=== PATIENT | female | born 1960 | race Caucasian/White ===

== ENCOUNTER 2018-02-28 01:53 | Observation (INO) | payer BC ==
[~2018-02-28] VITALS: Ht 157.5 cm; Wt 81.2 kg
[2018-02-28] MEDS ORDERED: dexameTHASONE 20 MG/5 ML VIAL (J1100) IV ONE (03:15)
[2018-02-28 03:16] LABS: BASO # 0.1 10^3/uL (0.0-0.2); BASO % 0.6 % (0.0-1.0); EOS % 0.1 % (0.0-3.0); HEMATOCRIT 34.2 % (36.0-47.0); HEMOGLOBIN 11.6 g/dl (12.0-15.5); LYMPH # 0.7 10^3/uL (1.5-4.5); LYMPH % 4.8 % (24.0-44.0); MEAN CORPUSCULAR HEMOGLOBIN 28.3 pg (27.0-33.0); MEAN CORPUSCULAR HGB CONC 33.9 g/dl (32.0-36.5); MEAN CORPUSCULAR VOLUME 83.4 fl (80.0-96.0); MONO # 0.8 10^3/uL (0.0-0.8); MONO % 5.6 % (0.0-5.0); NEUTROPHILS % 88.4 % (36.0-66.0); PLATELET COUNT, AUTOMATED 176 10^3/uL (150-450); WHITE BLOOD COUNT 14.7 10^3/uL (4.0-10.0)
[2018-02-28 03:29] LABS: BLOOD UREA NITROGEN 12 MG/DL (7-18); CALCIUM LEVEL 7.9 MG/DL (8.5-10.1); CARBON DIOXIDE LEVEL 23 MEQ/L (21-32); CHLORIDE LEVEL 107 MEQ/L (98-107); CPK CREATINE PHOSPHOKINASE 124 U/L (26-192); CREATININE FOR GFR 0.85 MG/DL (0.55-1.30); GLOMERULAR FILTRATION RATE > 60.0 (>51); GLUCOSE, FASTING 137 MG/DL (70-100); MB/CK RELATIVE INDEX 1.05 (< OR =4); NT-PRO BNP 1943 PG/ML (<125); POTASSIUM SERUM 3.4 MEQ/L (3.5-5.1); SODIUM LEVEL 139 MEQ/L (136-145); TROPONIN I < 0.02 NG/ML (< 0.10)
[2018-02-28] MEDS: IPRATROPIUM 0.5MG/ALBUTEROL 2.5MG INH SOL UD 3ML (DUONEB)(J7620) NEB SCH ×6 (03:29→19:45)
[2018-02-28 03:37] LABS: ABG BASE EXCESS 0.9 (-2.0-2.0); ABG HCO3 24.9 MEQ/L (22.0-26.0); ABG O2 SATURATION 95.7 % (95.0-99.0); ABG PARTIAL PRESSURE CO2 37.4 mmHg (35.0-45.0); ABG PARTIAL PRESSURE O2 76.4 mmHg (75.0-100.0); ABG STANDARD HCO3 25.3 MEQ/L (22.0-26.0); ABG pH (ARTERIAL) 7.441 UNITS (7.350-7.450)
--- NOTE | 2018-02-28 04:55 | ECGEPIP ---
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
[2018-02-28 05:00] VITALS: BP 102/50
[2018-02-28] MEDS ORDERED: FUROSEMIDE 100 MG/10 ML VIAL (J1940) IV ONE (05:00)
[2018-02-28] MEDS ORDERED: NITROGLYCERIN 2% OINT 1 GM *U/D* PKT TOP ONE (05:00)
[2018-02-28] MEDS ORDERED: HYDR25TAB PO (05:11)
[2018-02-28] MEDS ORDERED: FAMO1TAB11 PO (05:11)
[2018-02-28] MEDS ORDERED: MELO15TA28 PO (05:11)
[2018-02-28] MEDS ORDERED: AMLO5TAB6 PO (05:11)
[2018-02-28] MEDS ORDERED: VENTAER INH (05:11)
[2018-02-28] MEDS ORDERED: SUMA100T2 PO (05:11)
[2018-02-28] MEDS ORDERED: GABA-843 PO (05:11)
[2018-02-28] MEDS ORDERED: OMEP20CA3 PO (05:11)
[2018-02-28] MEDS ORDERED: FLUO40CA PO (05:11)
[2018-02-28] MEDS ORDERED: TRAZ10TA PO (05:11)
[2018-02-28] MEDS ORDERED: ONDANSETRON 4MG/2ML VIAL (J2405) IV PRN (05:30)
[2018-02-28] MEDS ORDERED: IPRATROPIUM 0.5MG/ALBUTEROL 2.5MG INH SOL UD 3ML (DUONEB)(J7620) NEB PRN (05:30)
[2018-02-28] MEDS ORDERED: BISACODYL 10 MG SUPP PR PRN (05:30)
[2018-02-28] MEDS ORDERED: BISACODYL 5 MG TAB PO PRN (05:30)
[2018-02-28] MEDS ORDERED: ALKACAP4 PO (05:44)
[2018-02-28] MEDS ORDERED: POTASSIUM CHLORIDE 10 MEQ SR TABLET PO ONE (05:45)
[2018-02-28] MEDS ORDERED: MAGNESIUM OXIDE 400 MG TAB (MAG-OX) PO ONE (05:45)
--- NOTE | 2018-02-28 05:50 | HPEPDOC ---
[facility] Medical History & Physical Date of Admission Feb 28, 2018 Attending Physician: RITA BOLAND MD History and Physical CHIEF COMPLAINT: [Dyspnea] HISTORY OF PRESENT ILLNESS: [57-year-old female was in a few past medical history of hypertension, who takes water pill, but denies of any heart failure heart disease, GERD, neuropathy, depression, migraine, and smokes one pack a day present complaining shortness of breath. Patient is visiting from [place]. She is visiting her sister for the holiday season. Patient came in today [place] one day prior to . Subsequently patient has been eating, with family including eating hussein in the morning and also has soup at a restaurant. Patient states that she normally does not consume much salt. Patient also had chest discomfort with shortness of breath. Starting 2 days ago she had shortness of breath and progressively worsened. She denies any fever, chills, abdominal pain, diarrhea or dysuria. She did have some intermittent cough without sputum production. She does smoke 1 pack a day but restarted 2 years ago. She is not oxygen or steroid dependent. She is unable to lay flat without shortness of breath. Denies of any lower extremity swelling. Patient was evaluated in the emergency room initially pulse ox showed hypoxemia on room air but after receiving therapy in the emergency room patients ABG was found to be normal. Patient had a checks x-ray showed cardiomegaly with cephalization. Patient received IV Lasix with good urine output. Patient is feeling much better. Patient is being admitted for further evaluation and treatment for CHF exacerbation. Review system: 12 point review systems negative other than those described in HPI Past medical history: Hypertension, takes water pill does not know she has congestive heart failure, denies of heart disease, GERD, neuropathy, depression, migraine which takes trazodone and a smoker Surgical history: Hand surgery, shoulder surgery Social history: Patient denies of IV drug abuse but occasionally drinks alcohol last consumption of alcohol was during the but denies of any abuse, smokes 1 pack a day and restarted smoking 2 years ago. Intermittently smoking on and off. Family medical history: Noncontributory ALLERGIES: Please see below. HOME MEDICATIONS: Please see below. PHYSICAL EXAMINATION: VITAL SIGNS: Please see below GENERAL APPEARANCE: Shortness of breath, improved with oxygen therapy HEENT: Normocephalic, PERRLA, Mucous moist, CARDIOVASCULAR: S1,S2, pulse present, regularly, regular LUNGS: Equal air entry b/l, no wheezes but bilateral diffuse crackle ABDOMEN: Soft, BS present, no tenderness, no guarding GENITOURINARY: No Meneses EXTREMITIES: B/L no edema, capillary refill present SKIN: Warm, No fever NEUROLOGICAL: Cranial nerves grossly intact PSYCHIATRIC: Normal mood and affect for current situation, sister and family member at the bedside LABORATORY DATA: See below. IMAGING: [CXR: Cardiomegaly, cephalization but no obvious consolidation. Please follow up with official reading by radiology in a.m. EKG: HR 79, sinus, no ST elevation MICROBIOLOGY: Please see below. Assessment and plan: 57-year-old female was in a few past medical history of hypertension, who takes water pill, but denies of any heart failure heart disease, GERD, neuropathy, depression, migraine, and smokes one pack a day present complaining shortness of breath. Dyspnea from Pulmonary edema and CHF exacerbation (ABG without acidosis or hypoxemia but patient symptomatic dyspnea) Respiratory treatment, oxygen Telemetry, serial cardiac enzyme, echocardiogram I&O monitoring, daily weight IV Lasix with parameters Thyroid function Leukocytosis, most likely reactive No fever Continue clinically monitor Hypokalemia Replace and monitor, magnesium level GERD, Protonix by mouth Hypertension, utilize Lasix as mentioned above Patients sister to bring his medication list from home today DVT prophylaxis with heparin subcutaneous Vital Signs Vital Signs Date Time Temp Pulse Resp B/P (MAP) Pulse Ox O2 Delivery O2 Flow Rate FiO2 02/28/18 05:30 20 149/61 (90) 02/28/18 05:23 82 97 02/28/18 02:15 Nasal Cannula 2.0 02/28/18 01:54 98.1 Laboratory Data Labs 24H Laboratory Tests 2 02/28/18 02:28: Immature Granulocyte % (Auto) 0.5, White Blood Count 14.7H, Red Blood Count 4.10, Hemoglobin 11.6L, Hematocrit 34.2L, Mean Corpuscular Volume 83.4, Mean Corpuscular Hemoglobin 28.3, Mean Corpuscular Hemoglobin Concent 33.9, Red Cell Distribution Width 13.2, Platelet Count 176, Neutrophils (%) (Auto) 88.4H, Lymphocytes (%) (Auto) 4.8L, Monocytes (%) (Auto) 5.6H, Eosinophils (%) (Auto) 0.1, Basophils (%) (Auto) 0.6, Neutrophils # (Auto) 13.0H, Lymphocytes # (Auto) 0.7L, Monocytes # (Auto) 0.8, Eosinophils # (Auto) 0.0, Basophils # (Auto) 0.1, Nucleated Red Blood Cells % (auto) 0.0, Anion Gap 9, Glomerular Filtration Rate > 60.0, Blood Urea Nitrogen 12, Creatinine 0.85, Sodium Level 139, Potassium Level 3.4L, Chloride Level 107, Carbon Dioxide Level 23, Calcium Level 7.9L, Total Creatine Kinase 124, Creatine Kinase MB 1.0, Creatine Kinase MB Relative Index 1.05, Troponin I < 0.02, TE-Wox-P-Type Natriuretic Peptide 1943H 02/28/18 03:08: Blood Gas Bicarbonate Standard 25.3, Arterial Blood pH 7.441, Arterial Blood Partial Pressure CO2 37.4, Arterial Blood Partial Pressure O2 76.4, Arterial Blood Total CO2 26.0, Arterial Blood HCO3 24.9, Arterial Blood Base Excess 0.9, Arterial Blood Oxygen Saturation 95.7 CBC/BMP Laboratory Tests 02/28/18 02:28 Red Blood Count 4.10, Mean Corpuscular Volume 83.4, Mean Corpuscular Hemoglobin 28.3, Mean Corpuscular Hemoglobin Concent 33.9, Red Cell Distribution Width 13.2, Neutrophils (%) (Auto) 88.4 H, Lymphocytes (%) (Auto) 4.8 L, Monocytes (%) (Auto) 5.6 H, Eosinophils (%) (Auto) 0.1, Basophils (%) (Auto) 0.6, Neutrophils # (Auto) 13.0 H, Lymphocytes # (Auto) 0.7 L, Monocytes # (Auto) 0.8, Eosinophils # (Auto) 0.0, Basophils # (Auto) 0.1, Calcium Level 7.9 L, Total Creatine Kinase 124 Home Medications Scheduled Amlodipine Besylate (Amlodipine Besylate) 5 Mg Tab, 5 MG PO DAILY Famotidine (Famotidine) 20 Mg Tab, 20 MG PO QPM Fluoxetine Hcl (Fluoxetine HCl) 40 Mg Cap, 40 MG PO BID Gabapentin (Gabapentin) 300 Mg Cap, 900 MG PO TID Hydrochlorothiazide (Hydrochlorothiazide) 25 Mg Tab, 25 MG PO DAILY Meloxicam (Meloxicam) 15 Mg Tab, 15 MG PO DAILY Omeprazole (Omeprazole) 20 Mg Cap, 20 MG PO DAILY Trazodone HCl (Trazodone HCl) 100 Mg Tab, 200 MG PO QHS Scheduled PRN (Kathy-Robinson Plus Night C 5-6.25-10-325 mg) 1 Cap Cap, 1 CAP PO QHS PRN for CONGESTION Albuterol Sulfate (Ventolin Hfa) 108 Mcg/Act Aer, 2 PUFF INH Q4-6HP PRN for wheezing NEW PRESCRIPTION, HAS NOT STARTED Sumatriptan Succinate (Sumatriptan Succinate) 100 Mg Tab, 0.5-1 TAB PO ASDIRECTED PRN for HEADACHE Allergies Coded Allergies: No Known Allergies (Unverified , 02/28/18) JONATHAN MUELLER MD Feb 28, 2018 05:50
[2018-02-28] MEDS: HEPARIN SOD (PORCINE) 5000 UNITS/ML VIAL SC SCH ×3 (06:40→22:18)
[2018-02-28 06:52] LABS: HEMATOCRIT 36.6 % (36.0-47.0); HEMOGLOBIN 12.2 g/dl (12.0-15.5); MEAN CORPUSCULAR HGB CONC 33.3 g/dl (32.0-36.5); MEAN CORPUSCULAR VOLUME 83.9 fl (80.0-96.0); PLATELET COUNT, AUTOMATED 180 10^3/uL (150-450); RED BLOOD COUNT 4.36 10^6/uL (4.00-5.40); WHITE BLOOD COUNT 15.3 10^3/uL (4.0-10.0)
[2018-02-28 07:31] LABS: BLOOD UREA NITROGEN 14 MG/DL (7-18); CALCIUM LEVEL 8.5 MG/DL (8.5-10.1); CARBON DIOXIDE LEVEL 26 MEQ/L (21-32); CHLORIDE LEVEL 105 MEQ/L (98-107); CPK CREATINE PHOSPHOKINASE 140 U/L (26-192); CREATININE FOR GFR 0.93 MG/DL (0.55-1.30); FREE THYROXINE INDEX 3.4 % (1.3-4.8); GLOMERULAR FILTRATION RATE > 60.0 (>51); GLUCOSE, FASTING 143 MG/DL (70-100); MAGNESIUM LEVEL 2.1 MG/DL (1.8-2.4); MB/CK RELATIVE INDEX 0.86 (< OR =4); POTASSIUM SERUM 3.6 MEQ/L (3.5-5.1); SODIUM LEVEL 138 MEQ/L (136-145); T UPTAKE 35 % (30-39); THYROID STIMULATING HORMONE 0.871 uIU/ML (0.358-3.740); THYROXINE (T4) 9.6 UG/DL (4.5-12.0); TROPONIN I < 0.02 NG/ML (< 0.10)
--- NOTE | 2018-02-28 07:55 | REP ---
Clinical: Dyspnea. Technique: PA and lateral. Comparison: None. Findings: Cardiomegaly is appreciate with diffuse chronic interstitial changes. Superimposed ill-defined pulmonary vasculature, increased interstitial markings, as well as scattered infiltrates. Lateral view cannot exclude small effusion. Skeletal structures intact. Impression: Findings likely represent elements of CHF and pulmonary edema. Differential diagnosis includes multifocal pneumonia. Electronically Signed by Efraín William MD 02/28/2018 07:46 A
[2018-02-28] MEDS: PANTOPRAZOLE 40MG TAB (PROTONIX) PO SCH (08:55)
[2018-02-28] MEDS: ACETAMINOPHEN TAB 650MG DOSE (2X325MG) PO PRN (08:56)
[2018-02-28] MEDS: FUROSEMIDE 40 MG/4 ML VIAL (J1940) IV SCH ×3 (08:56→16:28)
[2018-02-28 13:59] LABS: CPK CREATINE PHOSPHOKINASE 128 U/L (26-192); MB/CK RELATIVE INDEX 0.94 (< OR =4); TROPONIN I < 0.02 NG/ML (< 0.10)
--- NOTE | 2018-02-28 18:01 | REP ---
CT chest without contrast: History: Shortness of breath and cough. Question infiltrate. Comparison is made with today's chest x-ray. CT findings: There are patchy bilateral areas of ground-glass opacification in the upper lobes bilaterally and to a lesser extent the right middle lobe and lower lobes. No pleural effusion is seen. There are scattered mediastinal lymph nodes noted the largest of which measures 1.0 by 2.0 cm. No adrenal lesion is seen. There are clips in the gallbladder fossa. The visualized upper abdominal structures are otherwise unremarkable. No extrathoracic mass or adenopathy is seen. No bony destructive lesion is observed. Impression: Patchy ground-glass infiltrates in the upper lobes and to a lesser extent right middle lobe and both lower lobes. Atypical pneumonia versus less likely pulmonary edema pattern. There are several nonspecific mediastinal lymph nodes also noted. Electronically Signed by iDllon Valera MD 02/28/2018 06:27 P
[2018-02-28] MEDS: LevoFLOXacin IV 750 MG in APPROPRIATE DILUENT 1 EA IV SCH (18:28)
[2018-02-28] MEDS: methylPREDNISolone INJ 125 MG/2 ML VIAL (J2930) IV SCH (18:28)
[2018-02-28] MEDS: guaiFENesin ER 600 MG TAB PO SCH (18:28)
[2018-02-28 22:33] LABS: CK-MB VALUE MASS < 1.0 NG/ML (<3.6); CPK CREATINE PHOSPHOKINASE 117 U/L (26-192); MB/CK RELATIVE INDEX 0.85 (< OR =4); TROPONIN I < 0.02 NG/ML (< 0.10)
[2018-02-28 23:59] VITALS: BP 120/70
[2018-03-01] MEDS ORDERED: FUROSEMIDE 40 MG/4 ML VIAL (J1940) IV SCH
[2018-03-01] MEDS: IPRATROPIUM 0.5MG/ALBUTEROL 2.5MG INH SOL UD 3ML (DUONEB)(J7620) NEB SCH ×5 (00:12→15:22)
[2018-03-01] MEDS: methylPREDNISolone INJ 125 MG/2 ML VIAL (J2930) IV SCH ×5 (00:45→23:35)
[2018-03-01 04:45] VITALS: BP 136/72
[2018-03-01] MEDS: HEPARIN SOD (PORCINE) 5000 UNITS/ML VIAL SC SCH (05:37)
[2018-03-01 06:04] LABS: HEMATOCRIT 36.1 % (36.0-47.0); HEMOGLOBIN 12.2 g/dl (12.0-15.5); MEAN CORPUSCULAR HEMOGLOBIN 27.9 pg (27.0-33.0); MEAN CORPUSCULAR HGB CONC 33.8 g/dl (32.0-36.5); MEAN CORPUSCULAR VOLUME 82.6 fl (80.0-96.0); PLATELET COUNT, AUTOMATED 186 10^3/uL (150-450); RED BLOOD COUNT 4.37 10^6/uL (4.00-5.40); WHITE BLOOD COUNT 22.8 10^3/uL (4.0-10.0)
[2018-03-01 06:33] LABS: CALCIUM LEVEL 8.8 MG/DL (8.5-10.1); CREATININE FOR GFR 1.1 MG/DL (0.55-1.30); GLOMERULAR FILTRATION RATE 54.5 (>51); POTASSIUM SERUM 3.1 MEQ/L (3.5-5.1)
[2018-03-01] MEDS ORDERED: POTASSIUM CHLORIDE 10 MEQ SR TABLET PO ONE ×3 (07:00→12:00)
[2018-03-01 08:00] VITALS: BP 124/70
[2018-03-01 08:51] LABS: C REACTIVE PROTEIN QUANTITATIV 10.6 MG/DL (0.00-0.30)
[2018-03-01] MEDS: guaiFENesin ER 600 MG TAB PO SCH ×2 (08:55→20:37)
[2018-03-01] MEDS: PANTOPRAZOLE 40MG TAB (PROTONIX) PO SCH (08:55)
[2018-03-01] MEDS ORDERED: SLF 3 ML SYR IV PRN (10:45)
--- NOTE | 2018-03-01 11:18 | IPNPDOC ---
Text Note Date of Service The patient was seen on 03/01/18. NOTE Subjective: Patient states her dyspnea has improved since yesterday. She had been exposed to sick family members with upper respiratory tract infections. She had a nonproductive cough since 02/25. Objective: Vitals: (see below) General: No acute distress, laying comfortably in bed. HEENT: Moist mucous membranes. Neck: No JVD or lymphadenopathy Cardiac: RRR, No murmurs Pulm: Mild expiratory wheezing b/l. + rhonchi. Abd: NT/ND + BS Ext: No edema or cyanosis Labs (see below) Images: CT chest on 03/01/18 Impression: Patchy ground-glass infiltrates in the upper lobes and to a lesser extent right middle lobe and both lower lobes. Atypical pneumonia versus less likely pulmonary edema pattern. There are several nonspecific mediastinal lymph nodes also noted. Assessment/Plan 1. Multifocal pneumonia with positive coronavirus. Patient is being covered for concomitant bacteria infection as well with Levaquin. Sputum/blood cultures pending. 2. ? COPD exacerbation. Patient with no formal diagnosis of COPD however is a chronic smoker, had prolonged expiratory phase on exam. Continue steroids, nebs. Mucinex. Will need outpatient follow-up with PCP for referral for PFTs. Patient is aware and agreeable. 3. Pulmonary congestion status post Lasix. Improved. We'll hold Lasix for now. 4. Hypokalemia replaced. 5. Tobacco abuse counseled cessation. Refuses nicotine patch. 6. History of GERD on PPI 7. History of hypertension stable. DVT prophy: Lovenox VS,Fishbone, I+O VS, Fishbone, I+O Laboratory Tests 03/01/18 05:48 Red Blood Count 4.37, Mean Corpuscular Volume 82.6, Mean Corpuscular Hemoglobin 27.9, Mean Corpuscular Hemoglobin Concent 33.8, Red Cell Distribution Width 13.2, Calcium Level 8.8 Vital Signs Date Time Temp Pulse Resp B/P (MAP) Pulse Ox O2 Delivery O2 Flow Rate FiO2 03/01/18 09:05 18 94 Room Air 03/01/18 08:00 97.1 90 124/70 (88) 2.0 I&O- Last 24 Hours up to 6 AM 03/01/18 05:59 Intake Total 300 ml Output Total 1975 ml Balance -1675 ml ABED,RITA MD Mar 01, 2018 11:18
[2018-03-01 12:00] VITALS: BP 119/58
[2018-03-01] MEDS: SLF 3 ML SYR IV SCH ×2 (12:40→20:38)
[2018-03-01 16:00] VITALS: BP 148/70
[2018-03-01] MEDS ORDERED: ENOXAPARIN 40 MG/0.4 ML SYRINGE (J1650) SC SCH (18:00)
[2018-03-01] MEDS: LevoFLOXacin IV 750 MG in APPROPRIATE DILUENT 1 EA IV SCH (18:33)
[2018-03-01 20:21] VITALS: BP 120/58
--- NOTE | 2018-03-01 22:31 | ECHO ---
DATE OF PROCEDURE: 02/28/2018 DATE OF : 1960 AGE: 57 REFERRING PROVIDER: Dr. Santos Hernandez PATIENT LOCATION: ED, #19. REASON FOR THE ECHOCARDIOGRAM: Shortness of breath. 2D MEASUREMENTS: IVS: 1.0 cm LV: 5.4 cm LVPW: 1.0 cm LA: 4.1 cm Aorta: 2.7 cm IVC: 2.3 cm DOPPLER MEASUREMENTS: Peak velocity across the aortic valve: 1.7 m/s Peak velocity across the LVOT: 1.5 m/s Peak gradient across the aortic valve: 12 mmHg Mean gradient across the aortic valve: 16 mmHg Mitral E: 1.3, Mitral A: 1.6 with a ratio of 0.8 Maximum tricuspid valve velocity: 2.4 m/s 2D COMMENTS: 1. Normal left ventricular size, wall thickness, and normal global left ventricular systolic function. The estimated global left ventricular systolic ejection fraction is 60-65%. 2. Mildly enlarged left atrium. Normal right atrium and right ventricle. 3. The atrial septum appeared to be normal without evidence of defect or shunt. 4. Normal aortic root. 5. Small pericardial effusion noted, no evidence of cardiac tamponade. 6. Mildly calcified aortic valve with minimally restricted leaflet motion. Normal mitral valve, tricuspid valve. The pulmonic valve and proximal pulmonary artery branches appear to be normal. 7. The inferior vena cava was mildly enlarged, central venous pressure might be elevated. DOPPLER: It detects trace mitral regurgitation and trace to mild tricuspid regurgitation. The calculated pulmonary artery systolic pressure varied between 30-40 mmHg. Abnormal relaxation pattern was noted across the mitral valve leaflets, as well as the mitral valve annulus consistent with a delayed relaxation. IMPRESSION: 1. Normal global left ventricular systolic function. There were features of left ventricular diastolic dysfunction manifested by abnormal relaxation. 2. Aortic valve sclerosis with trivial aortic stenosis but no aortic regurgitation. 3. Trace mitral regurgitation. 4. Trace to mild tricuspid regurgitation with mild pulmonary hypertension. 5. Small pericardial effusion noted. No evidence of cardiac tamponade.
[2018-03-02 01:46] VITALS: BP 132/66
[2018-03-02] MEDS: IPRATROPIUM 0.5MG/ALBUTEROL 2.5MG INH SOL UD 3ML (DUONEB)(J7620) NEB SCH ×5 (03:46→15:09)
[2018-03-02] MEDS: methylPREDNISolone INJ 125 MG/2 ML VIAL (J2930) IV SCH ×2 (05:46→13:21)
[2018-03-02] MEDS: SLF 3 ML SYR IV SCH ×2 (05:46→13:21)
[2018-03-02 06:00] VITALS: BP 122/60
[2018-03-02 06:13] LABS: HEMATOCRIT 35.5 % (36.0-47.0); HEMOGLOBIN 11.7 g/dl (12.0-15.5); MEAN CORPUSCULAR HEMOGLOBIN 27.9 pg (27.0-33.0); MEAN CORPUSCULAR VOLUME 84.7 fl (80.0-96.0); PLATELET COUNT, AUTOMATED 191 10^3/uL (150-450); RED BLOOD COUNT 4.19 10^6/uL (4.00-5.40); WHITE BLOOD COUNT 19.2 10^3/uL (4.0-10.0)
[2018-03-02 06:38] LABS: BLOOD UREA NITROGEN 26 MG/DL (7-18); C REACTIVE PROTEIN QUANTITATIV 4.97 MG/DL (0.00-0.30); CALCIUM LEVEL 8.9 MG/DL (8.5-10.1); CARBON DIOXIDE LEVEL 24 MEQ/L (21-32); CHLORIDE LEVEL 105 MEQ/L (98-107); CREATININE FOR GFR 0.83 MG/DL (0.55-1.30); GLOMERULAR FILTRATION RATE > 60.0 (>51); GLUCOSE, FASTING 142 MG/DL (70-100); POTASSIUM SERUM 4.1 MEQ/L (3.5-5.1); SODIUM LEVEL 138 MEQ/L (136-145)
[2018-03-02 10:00] VITALS: BP 111/57
[2018-03-02] MEDS: PANTOPRAZOLE 40MG TAB (PROTONIX) PO SCH (10:04)
[2018-03-02] MEDS: guaiFENesin ER 600 MG TAB PO SCH (10:04)
[2018-03-02] MEDS: ACETAMINOPHEN TAB 650MG DOSE (2X325MG) PO PRN (13:44)
[2018-03-02] MEDS ORDERED: FLUTICASONE PROP 0.05% NASAL SPRAY 16 GM (FLONASE) NARES PRN (13:45)
[2018-03-02 14:00] VITALS: BP 132/65
[2018-03-02] MEDS ORDERED: CEFD300CAP PO ×2 (14:58→15:22)
[2018-03-02] MEDS ORDERED: MUCI600T37 PO ×2 (14:58→15:22)
[2018-03-02] MEDS ORDERED: PRED10TA2 PO ×2 (14:59→15:22)
--- NOTE | 2018-03-02 15:11 | DS.PDOC ---
Discharge Summary General Date of Admission Feb 28, 2018 at 05:25 Date of Discharge 03/02/18 Attending Physician: RITA BOLAND MD Discharge Summary PROCEDURES PERFORMED DURING STAY: None. ADMITTING/DISCHARGE DIAGNOSES: 1. Multifocal pneumonia with positive coronavirus 2. ? COPD exacerbation 3. Pulmonary congestion 4. Tobacco abuse, cessation counseling 5. Hypokalemia replaced 6. History of GERD and hypertension COMPLICATIONS/CHIEF COMPLAINT: Shortness of breath and cough HISTORY OF PRESENT ILLNESS/HOSPITAL COURSE: This is a 57-year-old female past medical history of tobacco abuse, hypertension, GERD who presents with shortness of breath and cough. Patient was noted to have multifocal pneumonia secondary to coronavirus questionable concomitant bacterial infection for which the patient was started on Levaquin. Patient's significant improvement of her respiratory status, short of breath. Patient is afebrile, and hemodynamically stable. Patient tolerated steroids, nebs, antibiotics well. Patient did receive Lasix for imaging consistent with pulmonary congestion howev er she is currently euvolemic. Patient will need outpatient PFTs, and she agrees to follow-up with her primary care physician for this, as she may have COPD that is undiagnosed. Patient has been advised to stop smoking tobacco, and refuses nicotine patch. Patient is hemodynamic stable and will be discharged home today. DISCHARGE MEDICATIONS: Please see below. ALLERGIES: Please see below. PHYSICAL EXAMINATION ON DISCHARGE: Vitals: (see below) General: No acute distress, laying comfortably in bed. HEENT: Moist mucous membranes. Neck: No JVD or lymphadenopathy Cardiac: RRR, No murmurs Pulm: Minimal expiratory wheezing improved b/l. No rhonchi. No crackles Abd: NT/ND + BS Ext: No edema or cyanosis LABORATORY DATA: Please see below. IMAGING: CT chest on 03/01/18 Impression: Patchy ground-glass infiltrates in the upper lobes and to a lesser extent right middle lobe and both lower lobes. Atypical pneumonia versus less likely pulmonary edema pattern. There are several nonspecific mediastinal lymph nodes also noted. PROGNOSIS: Good ACTIVITY: As tolerated. DIET: Low na DISCHARGE PLAN/DISPOSITION: Home DISCHARGE INSTRUCTIONS: 1. F/u wit PCP In 1-2 weeks. Return to ED if symptoms worsen. DISCHARGE CONDITION: Stable. TIME SPENT ON DISCHARGE: Greater than 30 minutes. Vital Signs/I&Os Vital Signs Date Time Temp Pulse Resp B/P (MAP) Pulse Ox O2 Delivery O2 Flow Rate FiO2 03/02/18 14:00 98.0 81 20 132/65 (87) 95 Room Air 03/01/18 08:00 2.0 I&O- Last 24 Hours up to 6 AM 03/02/18 06:00 Intake Total 870 ml Output Total 500 ml Balance 370 ml Laboratory Data Labs 24H Laboratory Tests 2 03/02/18 05:47: Nucleated Red Blood Cells % (auto) 0.0, Anion Gap 9, Glomerular Filtration Rate > 60.0, Blood Urea Nitrogen 26H, Creatinine 0.83, Sodium Level 138, Potassium Level 4.1#, Chloride Level 105, Carbon Dioxide Level 24, Calcium Level 8.9, C- Reactive Protein, Quantitative 4.97H CBC/BMP Laboratory Tests 03/02/18 05:47 Red Blood Count 4.19, Mean Corpuscular Volume 84.7, Mean Corpuscular Hemoglobin 27.9, Mean Corpuscular Hemoglobin Concent 33.0, Red Cell Distribution Width 13.5, Calcium Level 8.9 Microbiology Microbiology 02/28/18 Blood Culture - Preliminary, Resulted No growth after 24 hours . All specim... 02/28/18 Blood Culture - Preliminary, Resulted No growth after 24 hours . All specim... 02/28/18 Respiratory Virus Panel (PCR) (EVE) - Final, Complete Coronavirus Oc43 Discharge Medications Scheduled Cefdinir (Cefdinir) 300 Mg Cap, 1 CAP PO BID Famotidine (Famotidine) 20 Mg Tab, 20 MG PO QPM, (Reported) Fluoxetine Hcl (Fluoxetine HCl) 40 Mg Cap, 40 MG PO BID, (Reported) Gabapentin (Gabapentin) 300 Mg Cap, 900 MG PO TID, (Reported) Guaifenesin (Mucinex) 600 Mg Tab, 600 MG PO BID Hydrochlorothiazide (Hydrochlorothiazide) 25 Mg Tab, 25 MG PO DAILY, (Reported) Meloxicam (Meloxicam) 15 Mg Tab, 15 MG PO DAILY, (Reported) Omeprazole (Omeprazole) 20 Mg Cap, 20 MG PO DAILY, (Reported) Prednisone (Prednisone) 10 Mg Tab, 10 MG PO TAPER Take 4 tabs daily x 3 days, then 3 tabs daily x 3 days, then 2 tabs daily x 3 days, then 1 tab daily x 3 days and stop Trazodone HCl (Trazodone HCl) 100 Mg Tab, 200 MG PO QHS, (Reported) Scheduled PRN (Kathy-Mobile Plus Night C 5-6.25-10-325 mg) 1 Cap Cap, 1 CAP PO QHS PRN for CONGESTION, (Reported) Albuterol Sulfate (Ventolin Hfa) 108 Mcg/Act Aer, 2 PUFF INH Q4-6HP PRN for wheezing, (Reported) NEW PRESCRIPTION, HAS NOT STARTED Sumatriptan Succinate (Sumatriptan Succinate) 100 Mg Tab, 0.5-1 TAB PO ASDIRECTED PRN for HEADACHE, (Reported) Allergies Coded Allergies: No Known Allergies (Unverified , 02/28/18) RITA BOLAND MD Mar 02, 2018 15:11
[2018-03-02] MEDS: LevoFLOXacin IV 750 MG in APPROPRIATE DILUENT 1 EA IV SCH (15:55)
[2018-03-02] MEDS ORDERED: predniSONE 20 MG TAB PO ONE (16:00)
== END 2018-03-02 18:07 | disposition home or self-care (01) ==
LOC: M ED 01:53 → M ED INP 05:25 → M PCU 23:39 → M MSPAV 03-01 20:21
PROVIDERS: ADMIT Internal Medicine; ATTEND Internal Medicine
DX: J18.0 Bronchopneumonia, unspecified organism (principal); B34.2 Coronavirus infection, unspecified; J44.1 Chronic obstructive pulmonary disease with (acute) exacerbation; F17.210 Nicotine dependence, cigarettes, uncomplicated; E87.6 Hypokalemia; K21.9 Gastro-esophageal reflux disease without esophagitis; I10 Essential (primary) hypertension; Z79.51 Long term (current) use of inhaled steroids; Z79.899 Other long term (current) drug therapy
CPT/HCPCS: 36415; 36600; 71046; 71250; 80048; 82550; 82553; 82803; 83735; 83880; 84436; 84443; 84479; 84484; 85025; 85027; 86140; 87040; 87486; 87581; 87633; 87798; 93005; 93306; 94640; 96372; 96374; 96375; 96376; 99285; J1100; J1650; J1940; J1956; J2405; J2930